=== PATIENT | male | born 1930 | race Caucasian/White ===

== ENCOUNTER 2017-11-05 12:29 | Emergency (ER) | payer OTHER ==
[~2017-11-05] VITALS: Ht 167.6 cm; Wt 66.8 kg
[~2017-11-05 12:29] MED LIST: ARTIFICIAL TEAR1510 BOTH EYES; ASPIR-MOX IB T325 MG PO; ASPIRIN325 MG PO; ATIVAN0.5 MG PO; AVAPRO300 MG PO; Ativan PO; BENADRYL25 MG PO; C COMPLEX500 MG PO; CENTRAL VITE F1 EACH PO; CLARITIN,ALAVAR10 MG PO; GABAPENTIN100 MG PO; LO-DOSE ASPIRIN81 M1 PO; NEOSPORIN ANT70.8 GM TP; NITROSTAT0.4 MG SL; PEPCID AC20 MG PO; PLAVIX75 MG PO; SIMVASTATIN80 MG PO; TYLENOL EXTRA500 MG PO; TYLENOL REGULA325 MG PO; Tylenol Regular Stre PO; ULTRAM50 MG PO; VICKS VAPORUB O50 GM TP; VITAMIN D3400 UNI1 PO; VITAMIN D400 UNI2 PO; [UNRECOGNIZED DRUG - OTHER] PO
[2017-11-05 13:42] LABS: EOSINOPHIL (%) 1.1 % (0-5); HEMATOCRIT 39.1 % (38.0-50.0); IMMATURE GRANULOCYTE (%) 0.3 % (0.0-0.7); INSTRUMENT ABS NEUTROPHIL CT 2.7 K/uL; LYMPHOCYTE COUNT 0.5 K/uL (1.0-2.8); MCH 32.7 PG (29.0-34.0); MCHC 33.2 G/DL (30.0-36.0); MCV 98.2 FL (86-99); MEAN PLAT.VOLUME 9.5 uM^3 (9.0-12.4); MONOCYTE (%) 8.8 % (3-12); MONOCYTE COUNT 0.3 K/uL (0-0.8); NEUTROPHIL (%) 76.1 % (45-76); NEUTROPHIL COUNT 2.7 K/uL (1.8-6.4); PLATELET COUNT 206 K/uL (156-360); RBC DIS.WIDTH-SD 43.8 % (39-53); RED BLOOD COUNT 3.98 M/uL (4.00-5.50); WHITE BLOOD COUNT 3.5 K/uL (4.1-10.2)
[2017-11-05 13:51] LABS: CHLORIDE 103 mEq/L (99-109); POTASSIUM 4.2 mEq/L (3.7-5.4); SODIUM 139 mEq/L (136-147)
[2017-11-05 13:52] LABS: GLUCOSE 120 mg/dL (70-99)
[2017-11-05 13:54] LABS: ANION GAP 9 MEQ/L (2-14)
[2017-11-05 13:56] LABS: GFR ESTIMATE (CALCULATED) > 59 mL/min/ (58.99-99999)
[2017-11-05 13:57] LABS: UREA NITROGEN (BUN) 16 mg/dL (9-23)
[2017-11-05 14:27] LABS: ADD MIUA? YES; BILIRUBIN NEGATIVE; BLOOD LARGE; COLOR YELLOW ((YELLOW)); GLUCOSE (STRIP) NEGATIVE; KETONES NEGATIVE; LEUKOCYTES NEGATIVE; NITRITE NEGATIVE; PROTEIN (STRIP) 100; SPECIFIC GRAVITY 1.011 (1.000-1.030); UROBILINOGEN 0.2 MG/DL (0.2-1.0)
[2017-11-05 14:33] LABS: BACTERIA NONE SEEN /HPF; EPITHELIAL CELLS NONE SEEN /HPF; MUCUS TRACE /LPF; RED BLOOD CELLS TNTC /HPF (0-5); WHITE BLOOD CELLS 15-20 /HPF (0-5)
[2017-11-05] MEDS ORDERED: CIPRO500 MG PO (14:34)
[2017-11-05] MEDS ORDERED: TYLENOL WITH C1 EACH PO (14:42)
[2017-11-05 15:24] VITALS: BP 165/81
== END 2017-11-05 15:26 | disposition home or self-care (01) ==
LOC: EME 12:29
PROVIDERS: Emergency Medicine
DX: N30.91 Cystitis, unspecified with hematuria (principal); I10 Essential (primary) hypertension; E78.5 Hyperlipidemia, unspecified; J45.909 Unspecified asthma, uncomplicated; F03.90 Unspecified dementia, unspecified severity, without behavioral disturbance, psychotic disturbance, mood disturbance, and anxiety; F41.9 Anxiety disorder, unspecified; I25.10 Atherosclerotic heart disease of native coronary artery without angina pectoris; I25.2 Old myocardial infarction; Z95.5 Presence of coronary angioplasty implant and graft; Z95.1 Presence of aortocoronary bypass graft; Z88.2 Allergy status to sulfonamides
CPT/HCPCS: 74176; 80048; 81003; 85025; 99281; 99284; J0696

== ENCOUNTER 2017-11-15 05:29 | Emergency (ER) | payer OTHER ==
[~2017-11-15] VITALS: Ht 175.3 cm; Wt 63.3 kg
[~2017-11-15 05:29] MED LIST changes: +CIPRO500 MG PO; +TYLENOL WITH C1 EACH PO
[2017-11-15 07:19] LABS: HEMATOCRIT 40.1 % (38.0-50.0); HEMOGLOBIN 13.3 G/DL (12.5-16.6); MCH 32.3 PG (29.0-34.0); MCHC 33.2 G/DL (30.0-36.0); MCV 97.3 FL (86-99); PLATELET COUNT 235 K/uL (156-360); RBC DIS.WIDTH-CV 12.3 % (11.8-14.6); RBC DIS.WIDTH-SD 44.4 % (39-53); RED BLOOD COUNT 4.12 M/uL (4.00-5.50); WHITE BLOOD COUNT 5.2 K/uL (4.1-10.2)
[2017-11-15 07:48] LABS: ALBUMIN 3.7 G/DL (3.2-4.8); CHLORIDE 104 MEQ/L (99-109); SODIUM 140 MEQ/L (136-147); TOTAL BILIRUBIN 0.4 MG/DL (0.0-1.0)
[2017-11-15 07:55] LABS: ALKALINE PHOSPHATASE 64 IU/L (3-129); ALT (GPT) 13 IU/L (3-49); AST (GOT) 13 IU/L (2-34); CREATININE 0.9 MG/DL (0.6-1.3); GFR ESTIMATE (CALCULATED) > 59 mL/min/ (58.99-99999); GLUCOSE 115 mg/dL (70-99); SERUM ETHYL ALCOHOL < 10 mg/dL; TOTAL PROTEIN 5.8 G/DL (6.4-8.3); UREA NITROGEN (BUN) 16 mg/dL (9-23)
[2017-11-15 11:22] LABS: APPEARANCE SL.HAZY ((CLEAR)); BILIRUBIN NEGATIVE; BLOOD LARGE; COLOR YELLOW ((YELLOW)); GLUCOSE (STRIP) NEGATIVE; KETONES NEGATIVE; LEUKOCYTES SMALL; NITRITE NEGATIVE; PROTEIN (STRIP) 30; SPECIFIC GRAVITY 1.013 (1.000-1.030); UROBILINOGEN 0.2 MG/DL (0.2-1.0)
[2017-11-15 11:36] LABS: BACTERIA RARE /HPF; EPITHELIAL CELLS RARE /HPF; HYALINE CASTS 0-5 /LPF; MUCUS TRACE /LPF; RED BLOOD CELLS TNTC /HPF (0-5); UCUL ADDED? YES; WHITE BLOOD CELLS 40-50 /HPF (0-5)
[2017-11-15 19:00] VITALS: BP 155/86
== END 2017-11-15 19:00 | disposition home or self-care (01) ==
LOC: EME 05:29
PROVIDERS: Emergency Medicine
DX: F03.91 Unspecified dementia, unspecified severity, with behavioral disturbance (principal); Z91.83 Wandering in diseases classified elsewhere; F02.81 Dementia in other diseases classified elsewhere, unspecified severity, with behavioral disturbance; I25.2 Old myocardial infarction; I10 Essential (primary) hypertension; F41.9 Anxiety disorder, unspecified; E78.5 Hyperlipidemia, unspecified; J45.909 Unspecified asthma, uncomplicated; Z95.1 Presence of aortocoronary bypass graft; Z79.82 Long term (current) use of aspirin; Z88.2 Allergy status to sulfonamides; Z88.8 Allergy status to other drugs, medicaments and biological substances; I25.10 Atherosclerotic heart disease of native coronary artery without angina pectoris
CPT/HCPCS: 71020; 80053; 81003; 85027; 87077; 87086; 87186; 90837; 99281; 99285; G0480; J1630; J2060